=== PATIENT | male | born 1950 | race Caucasian/White ===

== ENCOUNTER → 2017-09-16 | Outpatient (CLI) | payer MEDICARE, OTHER ==
[~2017-09-16] MED LIST: LOPE2C
== END ==
LOC: LAB 16:49 → LAB SHORT 16:49
DX: D48.5 Neoplasm of uncertain behavior of skin (principal)
CPT/HCPCS: 88305

== ENCOUNTER 2020-06-06 16:56 | Inpatient (IN) | payer MEDICARE, OTHER ==
[~2020-06-06] VITALS: Ht 172.7 cm; Wt 99.5 kg
[2020-06-06 18:37] LABS: BASOPHILS ABSOLUTE AUTO 0.02 K/mm3 (0.00-0.23); BASOPHILS PERCENT AUTO 0 % (0-2); EOSINOPHILS ABSOLUTE AUTO 0.19 K/mm3 (0.00-0.68); EOSINOPHILS PERCENT AUTO 2 % (0-6); Hematocrit 45.9 % (37.0-53.0); Hemoglobin 14.5 g/dL (13.5-17.5); IMMATURE GRAN ABSOLUTE AUTO 0.04 K/mm3 (0.00-0.10); IMMATURE GRAN PERCENT AUTO 0 % (0-1); LYMPHOCYTES PERCENT AUTO 7 % (21-46); MONOCYTES PERCENT AUTO 8 % (4-13); Mean Corpuscular HGB 28.4 pg (26.0-34.0); Mean Corpuscular HGB Conc 31.6 g/dL (31.5-36.5); Mean Corpuscular Volume 90 fL (80-100); Mean Platelet Volume 11.1 fL (9.1-12.4); NEUTROPHILS ABSOLUTE AUTO 9.92 K/mm3 (1.96-9.15); NEUTROPHILS PERCENT AUTO 84 % (41-73); Platelet Count 141 K/mm3 (150-400); RDW Coefficient Variation 14.1 % (11.7-14.2); White Blood Cell Count 11.87 K/mm3 (4.00-11.30)
[2020-06-06] MEDS ORDERED: XELJANZ XR11 MG PO (19:24)
[2020-06-06] MEDS ORDERED: DIPATR PO (19:25)
[2020-06-06] MEDS ORDERED: AMLODIPINE-BEN1 EAC5 PO (19:32)
[2020-06-06 19:34] LABS: Troponin I <0.015 ng/mL (0.000-0.040)
[2020-06-06 19:41] LABS: Alanine Aminotransfer (ALT/SGP 36 U/L (12-78); Albumin, Blood 3.7 g/dL (3.4-5.0); Albumin/Globulin Ratio 0.9 (0.8-1.8); Alk Phos 60 U/L (50-136); Anion Gap 7 mmol/L (6-16); Aspartate Aminotrans (AST/SGOT 17 U/L (12-37); Bilirubin, Total 0.5 mg/dL (0.1-1.0); Blood Urea Nitrogen 29 mg/dL (8-24); Bun/Creatinine Ratio 22.8 (12.0-20.0); CO2, Blood 27 mmol/L (21-32); Calcium, Blood 8.8 mg/dL (8.5-10.1); Chloride, Blood 106 mmol/L (98-108); Creatinine, Blood 1.27 mg/dL (0.60-1.20); Globulin, Blood 3.9 g/dL (2.2-4.0); Glomerular Filtration Rate 60 (60-); Glucose, Blood 102 mg/dL (70-99); Potassium, Blood 4.5 mmol/L (3.5-5.5); Sodium, Blood 140 mmol/L (136-145); Total Protein, Blood 7.6 g/dL (6.4-8.2)
[2020-06-06 20:10] LABS: International Normalized Ratio 1.02; Prothrombin Time Results 10.9 Sec (9.7-11.5)
--- NOTE | 2020-06-07 04:57 | NUR ---
SHIFT SUMMARY PT ARRIVED TO THE UNIT AROUND 2300 06/06 IN STABLE CONDTION WITH BP 130'S SYSTOLIC, HR IN THE 60'S. PT ON ROOM AIR WITH O2 SATS IN THE 90'S, NO SHORTNESS OF BREATH OR CHEST PAIN, ON CPAP WHEN SLEEPING, NO O2 BLEED-IN AND SATS IN THE 90'S. PT STATED PAIN IN THE RIGHT LEG, MILD WHEN LYING 2 OF 10, AND MORE PAINFUL WHEN STANDING 6 OF 10. PT REQUESTED PAIN MEDICATION BEFORE SLEEPING, GAVE PRN MEDICATION AND PT SLEPT. NO CHANGE IN SWELLING, PAIN, REDNESS, OR TEMP IN RIGHT LEG T/O THE NIGHT. PT SLEPT MOST OF THE NIGHT, WILL CONTINUE TO MONITOR UNTIL SHIFT CHANGE.
[2020-06-07 06:34] LABS: BASOPHILS ABSOLUTE AUTO 0.05 K/mm3 (0.00-0.23); BASOPHILS PERCENT AUTO 1 % (0-2); EOSINOPHILS ABSOLUTE AUTO 0.34 K/mm3 (0.00-0.68); EOSINOPHILS PERCENT AUTO 3 % (0-6); Hematocrit 40.3 % (37.0-53.0); Hemoglobin 12.7 g/dL (13.5-17.5); IMMATURE GRAN ABSOLUTE AUTO 0.07 K/mm3 (0.00-0.10); IMMATURE GRAN PERCENT AUTO 1 % (0-1); LYMPHOCYTES ABSOLUTE AUTO 0.85 K/mm3 (0.84-5.20); LYMPHOCYTES PERCENT AUTO 8 % (21-46); MONOCYTES ABSOLUTE AUTO 0.91 K/mm3 (0.16-1.47); MONOCYTES PERCENT AUTO 8 % (4-13); Mean Corpuscular HGB 28.7 pg (26.0-34.0); Mean Corpuscular HGB Conc 31.5 g/dL (31.5-36.5); Mean Corpuscular Volume 91 fL (80-100); NEUTROPHILS ABSOLUTE AUTO 8.65 K/mm3 (1.96-9.15); NEUTROPHILS PERCENT AUTO 80 % (41-73); Platelet Count 130 K/mm3 (150-400); RDW Coefficient Variation 14.3 % (11.7-14.2); RDW Standard Deviation 47.8 fL (35.1-46.3); Red Blood Cell Count 4.42 M/mm3 (4.30-5.90); White Blood Cell Count 10.87 K/mm3 (4.00-11.30)
[2020-06-07 06:55] LABS: Anion Gap 6 mmol/L (6-16); Blood Urea Nitrogen 29 mg/dL (8-24); Bun/Creatinine Ratio 26.1 (12.0-20.0); CO2, Blood 26 mmol/L (21-32); Calcium, Blood 8.6 mg/dL (8.5-10.1); Chloride, Blood 109 mmol/L (98-108); Creatinine, Blood 1.11 mg/dL (0.60-1.20); Glomerular Filtration Rate >60 (60-); Glucose, Blood 97 mg/dL (70-99); Potassium, Blood 4.4 mmol/L (3.5-5.5); Sodium, Blood 141 mmol/L (136-145)
--- NOTE | 2020-06-07 17:34 | NUR ---
SHIFT SUMMARY PT A&Ox4; CALM AND COOPERATIVE WITH CARE. PT IND IN ROOM; REST IN BED FOR MAJORITY OF SHIFT. PT REPORTS ACUTE RLE AND CHRONIC ARTHIRIT PAIN; MEDICATED PER EMAR. PT REPORTS MILD SOB WITH AMBULATION; SPO2 >90% ON RA. PT DENIES CHEST PAIN, NASUEA AND DIZZINESS. HEPARIN GTT INFUSING. VSS. NO OTHER ACUTE CHAGNES NOTED DURING SHIFT. PLANS FOR NPO AT [facility] AND TO [facility] TOMORROW. WILL CONTINUE TO MONITOR UNITL REPORT GIVEN TO ONCOMING RN.
--- NOTE | 2020-06-08 06:28 | NUR ---
SHIFT SUMMARY ASSUMED CARE OF PT AT 191, REPORT RECEIVED FROM [facility]. PT RESTED COMFORTABLY THROUGHOUT SHIFT, NO ACUTE DYSPNEA OBSERVED, TOLERATED CPAP WELL. RIGHT LOWER EXTREMITY ELEVATED WHEN IN BED, STRONG PULSES. PT INSISTANT TO GET UP TO BRP WHEN NECESSARY, STEADY ON FEET. MEDICATED X1 FOR PAIN WITH GOOD RESULTS.
--- NOTE | 2020-06-08 18:02 | NUR ---
SHIFT SUMMARY PT A&Ox4; CALM AND COOPERATIVE WITH CARE. PT RESTING IN BED DURING SHIFT, IND IN ROOM. PT REPORTING CHRONIC ARTHRITIC PAIN AND ACUTE RLE PAIN; MEDICATED PT EMAR. PT DENIES SOB, NAUASEA AND DIZZINESS. PT ON HEPARIN GTT; PER DR JOE; RESTARTED AT 1700 AFTER PROCEDURE. LEFT GROIN AND RIGHT POSTERIOR KNEE SITES NO BLEEDING, BRUISING OR HEMATOMA NOTED. VSS. NO OTHER ACUTE CHANGES NOTED DURING SHIFT. WILL CONTINUE TO MONITOR UNITL REPORT GIVEN TO ONCOMING RN.
--- NOTE | 2020-06-08 21:10 | NUR ---
AWAKENED FOR VS AND ASSESSMENT. VOICED THAT HE DOESNT WANT TO BE AWAKENED FOR VS LATER, ONLY TO TAKE THEM IF HE IS AWAKE. STATED HE WOULD "WHISTLE" WHEN HE WAS AWAKE. ALERT AND ORIENTED. CALL LIGHT IN REACH.
--- NOTE | 2020-06-08 23:10 | NUR ---
BEHIND RIGHT CALF AREA ASSESSED, NO NOTED BULGING OR NEW DRAINAGE. PT STATED HE WOULD CHECK HIS LEFT GROIN, AFTER HE DID, DENIED ANY BULGING OF AREA. ALERT AND ORIENTED X 4. STATES AGAIN, NOT TO AWAKEN HIM FOR VS IF HE IS ASLEEP. CALL LIGHT IN REACH
--- NOTE | 2020-06-08 23:40 | NUR ---
DR SALGADO CALLED, INQUIRING IF PT WAS ON IV HEPARIN, THIS WAS ACKNOWLEDGED, NO ADDITIONAL ORDERS. CALL LIGHT IN REACH OF PT
--- NOTE | 2020-06-09 03:11 | NUR ---
SHIFT SUMMARY HAS BEEN RESTING QUIETLY WITH OCCASIONAL INTERRUPTIONS -SUCH LAB DRAWS AND VS. VOICED HE DIDNT WANT TO BE AWAKENED JUST FOR VITAL SIGNS, AND THAT IF HE WAS AWAKE, TO GET THEM, OTHERWISE TO WAIT UNTIL HE WHISTLED. IV HEPARIN DRIP INFUSING - SEE MAR FOR DOSAGE DETAILS AND CHANGES. CURRENTLY RESTING QUIETLY WITH NO S/S DISTRESS. CALL LIGHT IN REACH. NO NOTED ANOMALIES OF DRESSINGS OF LEFT GROIN AND RIGHT POSTERIOR CALF DRESSINGS. WILL CONT TO MONITOR
--- NOTE | 2020-06-09 08:15 | NUR ---
Bedside report received from BRANNON Cuevas. The pt is awake, alert and asking when the doctor is coming to see him. He is eager to go home, he states. He says that he is having pain in his right leg, but much less than before. Right popliteal site and left groin site are unremarkable.
--- NOTE | 2020-06-09 11:39 | NUR ---
Dr. Maldonado here to see the patient, and give him discharge instructions and review the plan post discharge, including anticoagulant Eliquis which will be started before he goes home. Verbal instructions from Dr. Maldonado to stop heparin now, and give Eliquis 30 minutes later.
[2020-06-09] MEDS ORDERED: OXYC5 PO (13:17)
[2020-06-09] MEDS ORDERED: ELIQUIS5 MG PO (13:18)
--- NOTE | 2020-06-09 13:58 | NUR ---
Spoke with Dr. Maldonado on phone regarding pt's blood pressure and discharge instructions, new medications. PT'S blood pressure came down to less than 140 systolic, so labetolol was disregarded. Also Dr. Maldonado cancelled changes to pt's home blood pressure medications.
[2020-06-13 17:08] LABS: ACT. PRT C RESIST W/FV DEFIC. 1.9 ratio (.); APTT 23.9 sec (.); DRVVT CONFIRM SECONDS 34.1 sec (.); DRVVT RATIO 1.3 ratio (.); DRVVT SCREEN SECONDS 49.1 sec (.); FACTOR VIII ACTIVITY 194 % (.); HEXAGONAL PHOSPHOLIPID NEUTRAL 0 sec (.); HOMOCYSTEINE 10.9 umol/L (.); PRT C ACTIVITY (CHROMOGENIC) 130 % (.)
== END 2020-06-09 13:49 | disposition home or self-care (01) | DRG 270 ==
LOC: ER 16:56 → PCU 21:00
PROVIDERS: Emergency Medicine; Physician Assistant; ADMIT Internal Medicine
PROC: 06H03DZ Insertion of Intraluminal Device into Inferior Vena Cava, Percutaneous Approach (ICD-10-PCS; principal; 2020-06-08)
PROC: 06CC3ZZ Extirpation of Matter from Right Common Iliac Vein, Percutaneous Approach (ICD-10-PCS; 2020-06-08)
PROC: 06CM3ZZ Extirpation of Matter from Right Femoral Vein, Percutaneous Approach (ICD-10-PCS; 2020-06-08)
PROC: 067F3ZZ Dilation of Right External Iliac Vein, Percutaneous Approach (ICD-10-PCS; 2020-06-08)
PROC: 067M3ZZ Dilation of Right Femoral Vein, Percutaneous Approach (ICD-10-PCS; 2020-06-08)
PROC: B51B1ZZ Fluoroscopy of Right Lower Extremity Veins using Low Osmolar Contrast (ICD-10-PCS; 2020-06-08)
DX: I82.411 Acute embolism and thrombosis of right femoral vein (principal); I26.99 Other pulmonary embolism without acute cor pulmonale; I82.431 Acute embolism and thrombosis of right popliteal vein; I82.451 Acute embolism and thrombosis of right peroneal vein; I82.441 Acute embolism and thrombosis of right tibial vein; Z90.49 Acquired absence of other specified parts of digestive tract; M06.9 Rheumatoid arthritis, unspecified; I10 Essential (primary) hypertension; G47.33 Obstructive sleep apnea (adult) (pediatric)
CPT/HCPCS: 36415; 37187; 37191; 37238; 37248; 71260; 75820; 75827; 76937; 80048; 80053; 81240; 83090; 83880; 84484; 85025; 85240; 85300; 85303; 85306; 85307; 85610; 85613; 85651; 85730; 85732; 86141; 86146; 86147; 93005; 93010; 93971; 94660; 94762; 99152; 99153; 99285-25; A9270-GY; C1725; C1757; C1769; C1876; C1880; C1887; C1894; J1644; J2250; J3010; J7030; Q9967

== ENCOUNTER 2020-09-06 09:05 | Day surgery (SDC) | payer MEDICARE, OTHER ==
[~2020-09-06] VITALS: Ht 172.7 cm; Wt 98.8 kg
[~2020-09-06 09:05] MED LIST changes: +AMLODIPINE-BEN1 EAC5 PO; +DIPATR PO; +ELIQUIS5 MG PO; +OXYC5 PO; +XELJANZ XR11 MG PO
--- NOTE | 2020-09-06 12:30 | NUR ---
PT VERBALIZED UNDERSTANDING OF WRITTEN AND VERBAL D/C INST. -BLEEDING OR SWELLING R UPPER CHEST AREA. IV REMOVED. PT TAKEN OUT OF THE [facility] VIA W/C.
== END 2020-09-06 13:17 | disposition home or self-care (01) ==
LOC: MHTC 09:05
DX: I82.90 Acute embolism and thrombosis of unspecified vein (principal)
CPT/HCPCS: 37193; 76937; 99152; 99153; C1773; C1894; J1644; J2250; J3010; J7040; J7050; Q9967

== ENCOUNTER → 2020-11-14 | Outpatient (CLI) | payer MEDICARE, OTHER | LOC: PLD 08:44 → LAB SHORT 08:44 | DX: D48.5 Neoplasm of uncertain behavior of skin (principal); I78.1 Nevus, non-neoplastic | CPT/HCPCS: 88304; 88305 ==

== ENCOUNTER 2020-12-20 10:30 | Day surgery (SDC) | payer MEDICARE, OTHER ==
[~2020-12-20] VITALS: Ht 172.7 cm; Wt 105.0 kg
[2020-12-20] MEDS ORDERED: SIMPONI100 MG/11 SC (11:05)
--- NOTE | 2020-12-20 14:15 | NUR ---
PT BROUGHT INTO RECOVERY RM ON GURNEY WITH PURSE SUTURES AND CLOTH DOT IN PLACE TO R LE/POP TOLERATES WELL. NO BLEEDING NOTED. VSS. NADN. PT ASKING TO "WHEN CAN IN LEAVE ANYWAYS" PT ADVISED OF ORDERS. WILL CONTINUE TO MONITOR PATIENT. PT EATING LUNCH NOW, TOLERATES WELL.
--- NOTE | 2020-12-20 15:08 | NUR ---
PT VERBALIZES UNDERSATNDING WRITTEN AND VERBAL ORDERS. PT DRESSES SELF WIHTOUT DIFF. PT IV DC'D. CATH INTACT. PT WILL KEEP SUTURES IN UNTIL NEXT WEEK. [facility] FROM THE OFFICE WILL CALL TO SCHEDULE AN APPT. VSS. SITE REMAINS CLEAR.
--- NOTE | 2020-12-20 15:14 | NUR ---
PT DC TO HOME VIA S/O BY JENNIFER.
== END 2020-12-20 15:18 | disposition home or self-care (01) ==
LOC: MHTC 10:30
DX: I82.501 Chronic embolism and thrombosis of unspecified deep veins of right lower extremity (principal); I82.511 Chronic embolism and thrombosis of right femoral vein; I87.2 Venous insufficiency (chronic) (peripheral); D68.51 Activated protein C resistance; Z88.2 Allergy status to sulfonamides; Z88.8 Allergy status to other drugs, medicaments and biological substances; Z79.01 Long term (current) use of anticoagulants; Z79.899 Other long term (current) drug therapy; Z20.822 Contact with and (suspected) exposure to COVID-19
CPT/HCPCS: 37187; 37238; 37248; 37252; 75820; 75825; 76937; 85347; 99152; 99153; C1725; C1757; C1769; C1876; C1887; C1894; J1644; J2250; J3010; J7030; J7040; Q9967

== ENCOUNTER → 2022-05-15 | Outpatient (CLI) | payer MEDICARE, OTHER ==
[~2022-05-15] MED LIST changes: +SIMPONI100 MG/11 SC
[2022-05-15 12:45] LABS: Calcium, Blood 9.3 mg/dL (8.5-10.1); Creatinine, Blood 1.04 mg/dL (0.60-1.20); Potassium, Blood 4.1 mmol/L (3.5-5.5)
== END | disposition home or self-care (01) ==
LOC: LAB 10:47 → LAB SHORT 10:47
PROVIDERS: Family Medicine
DX: Z11.59 Encounter for screening for other viral diseases (principal); R73.9 Hyperglycemia, unspecified
CPT/HCPCS: 36415; 80048; 83036; 86803

== ENCOUNTER → 2023-04-10 | Outpatient (CLI) | payer MEDICARE, OTHER | LOC: LAB SHORT 09:59 → LAB 09:59 | DX: B35.1 Tinea unguium (principal); L01.01 Non-bullous impetigo | CPT/HCPCS: 87070; 87205 ==